=== PATIENT | female | born 1980 | race Caucasian/White ===

== ENCOUNTER 2023-06-06 07:36 | Outpatient (CLI) | payer BC, MEDICAID, SELFPAY ==
--- NOTE | 2023-06-06 07:48 | MM_ITS ---
WS: [id number] DIAGNOSTIC BILATERAL DIGITAL BREAST TOMOSYNTHESIS MAMMOGRAPHY WITH CAD BILATERAL BREAST ULTRASOUND, LIMITED HISTORY: Palpable mass RIGHT breast. Family history of breast cancer. COMPARISON: None available. TECHNIQUE: Bilateral craniocaudad, mediolateral oblique, and mediolateral views are submitted with to vicente and CROW. Spot compression RIGHT CC and LEFT CC. Computer aided detection utilized. Breast composition: The breasts are heterogeneously dense, which may obscure small masses. Palpable m arker along the medial RIGHT breast. There is dense fibroglandular tissue. Mildly heterogeneous soft tissue with a palpable marker is placed. No additional abnormalities. In the lateral LEFT breast near 3:00 there is a well-circumscribed mass measuring 17 x 12 mm. Additional partially obscured masses m ay also be present in the upper outer quadrant of the LEFT breast. Ultrasound to follow. Bilateral breast ultrasound. RIGHT: At the palpable site there is no abnormality by ultrasound. There is no distortion. No solid m ass. There is a cluster of cysts at the areola measuring 2.0 x 1.1 x 1.6 cm. LEFT: Several simple cysts are present in the upper outer quadrant of the LEFT breast. The largest at 3:00 corresponds to the mammographic abnormality measuring 1.5 x 0.9 x 1.4 cm. IMPRESSION: MM/[place] [id number] BI-RADS: 2-Benign FOLLOW UP: 1 Year Follow-up At the site of the palpable abnormality the RIGHT breast no abnormality is iden tified by ultrasound or mammography. LACK OF RADIOGRAPHIC EVIDENCE OF MALIGNANC Y SHOULD NOT DELAY BIOPSY IF A CLINICALLY SUSPICIOUS MASS IS PRESENT.
== END 2023-06-06 07:37 | disposition home or self-care (01) ==
LOC: RAD 07:36
PROVIDERS: PCP Electrodiagnostic Medicine; Visit Provider Electrodiagnostic Medicine
DX: N63.10 Unspecified lump in the right breast, unspecified quadrant (principal); Z80.3 Family history of malignant neoplasm of breast
CPT/HCPCS: 76642; 77062; G0279

== ENCOUNTER 2025-03-18 08:25 | Outpatient (CLI) | payer BC, MEDICAID, SELFPAY ==
--- NOTE | 2025-03-18 08:29 | MM_ITS ---
WS: [id number] Bilateral screening 3D tomosynthesis digital mammogram, 03/18/2025 8:31 AM Clinical Data: SCREENING Comparison: 06/06/2023, 02/13/2013. Findings: No spiculated masses or clustered calcifications are seen. There are no secondary signs of carcinoma. MM/MM scr BI tomosynthesis [id number] Impression: Negative bilateral mammogram unchanged. Recommend annual screening mammograms. BIRADS: 1 - Negative FOLLOW UP: 1 Year Follow-up DENSITY: The breasts are extremely dense, which lowers the sensitivity of mammo graphy. The CAD quotation checker was used
== END 2025-03-18 08:26 | disposition home or self-care (01) ==
LOC: RAD 08:25
PROVIDERS: PCP Electrodiagnostic Medicine; Visit Provider Electrodiagnostic Medicine
DX: Z12.31 Encounter for screening mammogram for malignant neoplasm of breast (principal)
CPT/HCPCS: 77063; 77067